=== PATIENT | female | born 1985 | race Caucasian/White ===

== ENCOUNTER → 2016-10-31 | Outpatient (CLI) | payer BC ==
[~2016-10-31] MED LIST: HYDR-783 PO
--- NOTE | 2016-10-31 11:18 | DI ---
Indication: ITS.REASON: M25.562 LEFT KNEE PAIN PROCEDURE: MRI KNEE LEFT W/O CONTRAST: Encounter: Initial Comparison: None Technique: Multiplanar multisequence MR imaging of the left knee was performed without contrast. Findings: The most obvious finding is that of a lobular T2 hyperintense mass within the intramedullary canal of the distal femoral shaft measuring 5.7 cm longitudinally and 2.3 x 2.0 cms without aggressive features. It is lobular with some internal hypointensity. There is no endosteal scalloping or cortical destruction or periosteal fluid. 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 There is no marrow edema pattern. Fracture or bone bruise injury is not apparent. Cruciate and collateral ligaments are intact. There is no evidence of joint effusion or para-articular fluid collections. The extensor mechanism appears satisfactory; the patellar retinaculum appears normal. In terms of the menisci, there is normal morphology and signal intensity, no tears are apparent. 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 Impression: 1.There is a T2 hyperintense mass within the intramedullary canal of the distal femoral shaft measuring 5.7 cm longitudinally and 2.3 x 2.0 cms. 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 Recommend plain film examination for direct comparison. 2. No evidence of internal arrangement. 3. Hoffa's syndrome. .
== END ==
LOC: IMA 09:51
PROVIDERS: ATTEND Nurse Practitioner
DX: M89.8X6 Other specified disorders of bone, lower leg (principal); M79.4 Hypertrophy of (infrapatellar) fat pad; Z91.81 History of falling; M25.562 Pain in left knee